=== PATIENT | male | born 1965 | race Two or more races ===

== ENCOUNTER 2017-05-24 12:01 | Emergency (ER) | payer OTHER ==
[~2017-05-24] VITALS: Ht 185.4 cm; Wt 97.5 kg
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
[2017-05-24] MEDS ORDERED: IBUPROFEN 600 MG TABLET PO ONE ×2 (13:00→13:11)
[2017-05-24 14:40] VITALS: BP 125/82
--- NOTE | 2017-05-24 14:43 | NUR ---
Patient discharged to home in stable condition. Written and verbal after care instructions given. Patient verbalizes understanding of instruction. Prescription given.
== END 2017-05-24 14:44 | disposition home or self-care (01) ==
LOC: ER 12:03
DX: S16.1XXA Strain of muscle, fascia and tendon at neck level, initial encounter (principal); S39.012A Strain of muscle, fascia and tendon of lower back, initial encounter; K21.9 Gastro-esophageal reflux disease without esophagitis; Z98.890 Other specified postprocedural states; V43.52XA Car driver injured in collision with other type car in traffic accident, initial encounter; Y93.89 Activity, other specified; Y92.89 Other specified places as the place of occurrence of the external cause; Y99.8 Other external cause status
CPT/HCPCS: 72040-TC; A4606; Z7610